=== PATIENT | female | born 1945 | race Caucasian/White ===

== ENCOUNTER → 2016-11-24 | Outpatient (CLI) | payer MEDICARE, BC ==
[~2016-11-24] MED LIST: HUMI20KI; MELO7.5T PO
[2016-11-24 16:22] LABS: AUTOMATED NEUTROPHIL # 2.8 TH/MM3 (1.8-7.7); BASOPHIL % 0.7 % (0.0-2.0); EOSINOPHIL # 0.2 TH/MM3 (0-0.4); EOSINOPHIL % 4.6 % (0.0-4.0); HEMATOCRIT 41.6 % (35.0-46.0); HEMO FLAGS DIFF FINAL; LYMPH % 31.2 % (9.0-44.0); LYMPHOCYTE # 1.6 TH/MM3 (1.0-4.8); MEAN CELL VOLUME 94.4 FL (80.0-100.0); MEAN CORPUSCULAR HGB CONC 33.9 % (32.0-36.0); MONO % 7.3 % (0.0-8.0); NEUT % 56.2 % (16.0-70.0); PLATELET COUNT 210 TH/MM3 (150-450); RED CELL DISTRIBUTION WIDTH 12.7 % (11.6-17.2)
[2016-11-24 16:47] LABS: ALT (GPT) 26 U/L (10-53); ANION GAP 6 MEQ/L (5-15); AST (GOT) 17 U/L (15-37); BICARBONATE 30.1 MEQ/L (21.0-32.0); BLOOD UREA NITROGEN 10 MG/DL (7-18); CHLORIDE 106 MEQ/L (98-107); GLOMERULAR FILTRATION RATE 72 ML/MIN (>89); POTASSIUM 4.2 MEQ/L (3.5-5.1); SODIUM (NA) 142 MEQ/L (136-145)
[2016-11-24 16:49] LABS: ALKALINE PHOSPHATASE 58 U/L (45-117); TOTAL BILIRUBIN ADULT 0.9 MG/DL (0.2-1.0)
[2016-11-26 17:30] LABS: MITOGEN MINUS NIL RESULT >10.00 IU/mL (()); NIL RESULT 0.03 IU/mL (()); QUANTIFERON TB GOLD RESULT Positive (Negative)
== END ==
LOC: PLAB 11:49
PROVIDERS: ATTEND Allergy & Immunology
DX: M05.79 Rheumatoid arthritis with rheumatoid factor of multiple sites without organ or systems involvement (principal); Z79.899 Other long term (current) drug therapy
CPT/HCPCS: 36415; 80053; 85025; 86480

== ENCOUNTER → 2017-04-26 | Outpatient (CLI) | payer MEDICARE, BC ==
[2017-04-26 13:00] LABS: AUTOMATED NEUTROPHIL # 2.5 TH/MM3 (1.8-7.7); BASOPHIL % 0.6 % (0.0-2.0); EOSINOPHIL # 0.5 TH/MM3 (0-0.4); EOSINOPHIL % 9.4 % (0.0-4.0); HEMATOCRIT 41.1 % (35.0-46.0); HEMO FLAGS DIFF FINAL; LYMPHOCYTE # 1.8 TH/MM3 (1.0-4.8); MEAN CELL VOLUME 95.3 FL (80.0-100.0); MEAN CORPUSCULAR HEMOGLOBIN 31.1 PG (27.0-34.0); MEAN CORPUSCULAR HGB CONC 32.7 % (32.0-36.0); PLATELET COUNT 177 TH/MM3 (150-450); RED BLOOD COUNT 4.31 MIL/MM3 (4.00-5.30); RED CELL DISTRIBUTION WIDTH 13.1 % (11.6-17.2); WHITE BLOOD COUNT 5.4 TH/MM3 (4.0-11.0)
[2017-04-26 13:30] LABS: ANION GAP 4 MEQ/L (5-15); AST (GOT) 16 U/L (15-37); BLOOD UREA NITROGEN 16 MG/DL (7-18); CHLORIDE 106 MEQ/L (98-107); GLOMERULAR FILTRATION RATE 71 ML/MIN (>89); POTASSIUM 4.2 MEQ/L (3.5-5.1); SODIUM (NA) 143 MEQ/L (136-145)
[2017-04-26 13:39] LABS: ALKALINE PHOSPHATASE 58 U/L (45-117); ALT (GPT) 22 U/L (10-53)
[2017-04-26 13:46] LABS: WESTERGREN SEDIMENTATION RATE 9 mm/hr (0-30)
== END ==
LOC: PLAB 10:57
PROVIDERS: ATTEND Allergy & Immunology
DX: M05.741 Rheumatoid arthritis with rheumatoid factor of right hand without organ or systems involvement (principal); E55.9 Vitamin D deficiency, unspecified; Z79.899 Other long term (current) drug therapy
CPT/HCPCS: 36415; 80053; 85025; 85652; 86140

== ENCOUNTER → 2017-06-03 | Outpatient (CLI) | payer MEDICARE, BC ==
[~2017-06-03] MED LIST changes: +CIMZ200K SQ; +TURM500C4 PO
[2017-06-03 09:33] LABS: AUTOMATED NEUTROPHIL # 2.4 TH/MM3 (1.8-7.7); BASOPHIL % 0.5 % (0.0-2.0); EOSINOPHIL # 0.6 TH/MM3 (0-0.4); EOSINOPHIL % 11.2 % (0.0-4.0); HEMATOCRIT 41.5 % (35.0-46.0); HEMO FLAGS DIFF FINAL; LYMPH % 33.7 % (9.0-44.0); LYMPHOCYTE # 1.8 TH/MM3 (1.0-4.8); MEAN CELL VOLUME 95.4 FL (80.0-100.0); MEAN CORPUSCULAR HEMOGLOBIN 31.7 PG (27.0-34.0); MEAN CORPUSCULAR HGB CONC 33.2 % (32.0-36.0); MONO % 9.1 % (0.0-8.0); NEUT % 45.5 % (16.0-70.0); PLATELET COUNT 190 TH/MM3 (150-450); RED BLOOD COUNT 4.35 MIL/MM3 (4.00-5.30); RED CELL DISTRIBUTION WIDTH 12.7 % (11.6-17.2); WHITE BLOOD COUNT 5.3 TH/MM3 (4.0-11.0)
[2017-06-03 09:41] LABS: INTERNATIONAL NORMALIZED RATIO 0.9 RATIO
[2017-06-03 09:53] LABS: BLOOD, URINE NEG (NEG); COMMENT (UR) CULT NOT INDICATED; CULTURE IF INDICATED CULT NOT INDICATED; GLUCOSE,URINE NEG (NEG); KETONE, URINE NEG (NEG); MUCUS URINE FEW /lpf (OCC); NITRITE,URINE NEG (NEG); SQUAMOUS EPITHELIAL CELL URINE <1 /hpf (0-5); URINE COLOR YELLOW (YELLW/STRAW)
== END ==
LOC: CPRE 08:14
PROVIDERS: ATTEND Orthopaedic Surgery
DX: Z01.812 Encounter for preprocedural laboratory examination (principal); M75.01 Adhesive capsulitis of right shoulder; M25.511 Pain in right shoulder
CPT/HCPCS: 36415; 81001; 85025; 85610

== ENCOUNTER → 2017-06-03 | Outpatient (CLI) | payer MEDICARE, BC ==
[2017-06-03 09:57] LABS: ALT (GPT) 25 U/L (10-53); ANION GAP 5 MEQ/L (5-15); AST (GOT) 18 U/L (15-37); BICARBONATE 30.2 MEQ/L (21.0-32.0); BLOOD UREA NITROGEN 17 MG/DL (7-18); CHLORIDE 106 MEQ/L (98-107); GLOMERULAR FILTRATION RATE 73 ML/MIN (>89); GLUCOSE,FASTING 92 MG/DL (74-99); POTASSIUM 4.2 MEQ/L (3.5-5.1); SODIUM (NA) 141 MEQ/L (136-145)
[2017-06-03 10:02] LABS: ALKALINE PHOSPHATASE 58 U/L (45-117); TOTAL BILIRUBIN ADULT 0.7 MG/DL (0.2-1.0)
== END ==
LOC: CLAB 08:24
PROVIDERS: ATTEND Allergy & Immunology
DX: M05.741 Rheumatoid arthritis with rheumatoid factor of right hand without organ or systems involvement (principal); E55.9 Vitamin D deficiency, unspecified; Z79.899 Other long term (current) drug therapy
CPT/HCPCS: 36415; 80053; 81001; 85025; 85610; 85652; 86140

== ENCOUNTER → 2017-07-22 | Outpatient (CLI) | payer MEDICARE, BC ==
[~2017-07-22] MED LIST changes: -HUMI20KI; -MELO7.5T PO
[2017-07-22 11:36] LABS: AUTOMATED NEUTROPHIL # 2.2 TH/MM3 (1.8-7.7); BASOPHIL % 0.7 % (0.0-2.0); EOSINOPHIL # 0.3 TH/MM3 (0-0.4); HEMATOCRIT 41.7 % (35.0-46.0); HEMO FLAGS DIFF FINAL; LYMPH % 37.7 % (9.0-44.0); LYMPHOCYTE # 1.8 TH/MM3 (1.0-4.8); MEAN CELL VOLUME 95.1 FL (80.0-100.0); MEAN CORPUSCULAR HEMOGLOBIN 31.7 PG (27.0-34.0); MEAN CORPUSCULAR HGB CONC 33.3 % (32.0-36.0); MONO % 9.4 % (0.0-8.0); NEUT % 46.2 % (16.0-70.0); PLATELET COUNT 216 TH/MM3 (150-450); RED BLOOD COUNT 4.38 MIL/MM3 (4.00-5.30); RED CELL DISTRIBUTION WIDTH 12.1 % (11.6-17.2); WHITE BLOOD COUNT 4.8 TH/MM3 (4.0-11.0)
[2017-07-22 11:45] LABS: INTERNATIONAL NORMALIZED RATIO 0.9 RATIO; PROTHROMBIN TIME - PATIENT 10.2 SEC (9.8-11.6)
[2017-07-22 11:48] LABS: BLOOD, URINE NEG (NEG); COMMENT (UR) CULT NOT INDICATED; CULTURE IF INDICATED CULT NOT INDICATED; GLUCOSE,URINE NEG (NEG); KETONE, URINE NEG (NEG); MUCUS URINE FEW /lpf (OCC); NITRITE,URINE NEG (NEG); SQUAMOUS EPITHELIAL CELL URINE <1 /hpf (0-5); URINE COLOR YELLOW (YELLW/STRAW)
[2017-07-22 12:05] LABS: BICARBONATE 30.8 MEQ/L (21.0-32.0)
== END ==
LOC: CPRE 10:58
PROVIDERS: ATTEND Orthopaedic Surgery
DX: Z01.812 Encounter for preprocedural laboratory examination (principal); M75.01 Adhesive capsulitis of right shoulder; M25.511 Pain in right shoulder
CPT/HCPCS: 36415; 80048; 81001; 85025; 85610

== ENCOUNTER → 2017-07-28 | Day surgery (SDC) | payer MEDICARE, BC ==
--- NOTE | 2017-06-11 09:25 | MH ---
cc: MEME PATEL M.D. DATE OF ADMISSION: 07/02/2017 ADMISSION DIAGNOSIS Adhesive capsulitis right shoulder and pain of the right shoulder. HISTORY OF THE PRESENT ILLNESS The patient is a 71-year-old white female who has experienced pain of her right shoulder of almost 8 months duration. She had noted the onset of her symptoms that she related to participation in tennis activity which she was accustomed to playing at least three to four times per week and had conformed to this routine for almost 50 years. She did not recall any specific event during this activity that she might associate with the onset of her symptoms. She initially conformed to conservative management which included taking ibuprofen with limited benefit being noted. Her symptoms persisted. She later underwent medical evaluation with her primary care physician Dr. Quesada. An MRI scan of her right shoulder was completed the results of which identified findings consistent with adhesive capsulitis. There was tendinopathy of the distal fibers of the supraspinatus and infraspinatus tendons with a questionable rim tear of the anterior supraspinatus insertion as well as a questionable posterior labral tear. The patient was prescribed anti-inflammatory medication that she discontinued indicating that her pain was primarily associated with her continued tennis activities. She presented to the undersigned physician in February of this year and at that time reported ongoing pain about her right shoulder area. She did note a positive history for rheumatoid arthritis. Her overall findings were felt to be consistent with adhesive capsulitis for which she was initiated into a course of physical therapy and followed on outpatient basis thereafter. Unfortunately she was unable to appreciate any significant improvement of her symptoms and remained symptomatic with pain about the shoulder area that was influencing all activities of daily living. These findings were reviewed with the patient. The pros and cons of continuing with additional physical therapy versus a manipulation under anesthesia were reviewed. The potential risks and complications associated were emphasized. The patient considered her options in this regard and given the progressive nature of her symptoms and her associated limitations she expressed her desire to proceed accordingly and in compliance with her wishes she is currently being admitted in order that manipulation under anesthesia be accomplished. She is right-hand dominant. PAST MEDICAL HISTORY Her past medical history, hospitalizations and surgeries note: 1. Previous right total knee arthroplasty. 2. Arthroscopic surgery of both knees. 3. Colonoscopy. 4. Bilateral augmentation mammoplasty. 5. Abdominoplasty. 6. Of clinical significance is the fact that the patient had also previously experienced a left frozen shoulder syndrome which did respond to therapy intervention. Her medical illnesses include: Rheumatoid arthritis for which she takes Cimzia a 400 milligrams monthly injection. ALLERGIES THE PATIENT DENIES ANY KNOWN DRUG ALLERGIES. REVIEW OF SYSTEMS She wears contact lenses. She has a history of migraine headaches. No seizure or syncope. No sinus congestion or epistaxis. Auditory acuity intact. No tinnitus. No bleeding gums or dysphagia. Denies cough, shortness of breath, upper respiratory infection. There is a positive history of pneumonia as well as having tested positively with skin testing for tuberculosis. No angina or heart disease. Her appetite is good. Bowel movements are regular. No hepatitis, gallbladder disease or ulcers. There is a positive history of hemorrhoids. No urinary tract infection. No kidney stones. Previous history of a fracture of the left wrist treated by cast immobilization. No psychiatric illness. Her remaining review of systems is unremarkable and noncontributory. FAMILY HISTORY The patient has been for over 8 years. 84 years of age and described as being in good health. Three sons and one daughter all indicated to be in good health. Family history is positive for hypertension, diabetes and congestive heart failure. SOCIAL HISTORY The patient completed a [email or web address] college degree and subsequently attended [employer] training but has been retired for over 15 years. She denies active use of tobacco. Ethanol consumption on a rare occasion. PHYSICAL EXAMINATION GENERAL: Height 5 feet 7 inches, weight 170 pounds. An alert, oriented and responsive 71-year-old white female who sits quietly upon examination table. No obvious distress. HEENT: Eyes, nose and throat, pupils are equally round and reactive to light. Extraocular movements full. Sclerae clear. External nares clear. External auditory canals clear. Dental intact. Mucous membranes pink and moist. Pharynx clear. NECK: Supple. Active range of motion. No significant pain. Carotid pulse palpable bilaterally. Trachea midline. Thyroid without enlargement. LUNGS: Clear to auscultation and percussion. No CVA tenderness. No discomfort throughout the dorsal lumbar spine. HEART: Regular rhythm. No murmur or gallop. ABDOMEN: Soft, nontender. Bowel sounds present. PELVIC: Per primary care physician. EXTREMITIES: Right shoulder there is no localizing tenderness to palpation. There is obvious effort and discomfort with the patient actively attempting to elevate her right hand above her head level. Pain and limitations most pronounced in the 30 degree range of abduction maneuvering at which point there is an abrupt endpoint to the glenohumeral mobility and scapulothoracic motion tends to take over. No obvious crepitation or instability about the glenohumeral joint. Drop arm test is negative. Hendricks sign positive. No appreciable weakness of internal or external rotation. Nuclear Equipment Design Engineer strength intact. Sensory intact. NEUROLOGIC: Cranial nerves II-XII grossly intact. IMPRESSION Adhesive capsulitis of the right shoulder, pain right shoulder. PLAN Manipulation under anesthesia right shoulder. The nature of the planned surgical procedure, the potential complications and risks associated, the expectations of surgery and the consent form were thoroughly reviewed with the patient prior to admission to the hospital. María has indicated her full understanding regarding all of the above and given consent to proceed with treatment as outlined. Medical evaluation and clearance for surgery completed by her primary care physician Dr. Lalo Quesada. MD JIMMY Malloy/KK /3:50 PM /9:17 AM
--- NOTE | 2017-07-20 13:52 | MH ---
cc: MEME CHOPRA DATE OF ADMISSION: 07/28/2017 ADMITTING DIAGNOSIS 1. Adhesive capsulitis, right shoulder. 2. Pain, right shoulder. HISTORY OF PRESENT ILLNESS The patient is a 72-year-old white female who has experienced pain in her right shoulder of at least eight months duration. She had noted the onset of her symptoms related to participation in tennis activity which she had been accustomed to playing at least 3-4 times per week, while conforming to this routine for at least 50 years. She did not recall any specific event during this activity that she might associate with the onset of her symptoms. She initially conformed to conservative management which included taking ibuprofen with limited benefit described. Her symptoms persisted and she later underwent medical evaluation with her primary care physician, Dr. Quesada. An MRI scan of her right shoulder was completed, the results of which identified findings consistent with adhesive capsulitis, tendinopathy of the distal fibers of the supraspinatus and infraspinatus tendons with a questionable rim tear of the anterior supraspinatus insertion as well as a questionable posterior labral tear. The patient was prescribed anti-inflammatory medication that she discontinued indicating her pain was primarily associated with her continued tennis routine. She was seen by the undersigned physician in February of this year and at that time reported ongoing pain about her right shoulder. She reported a positive history of rheumatoid arthritis. Her overall clinical picture at that time was felt to be consistent with adhesive capsulitis of her right shoulder for which she was initiated into a course of physical therapy and followed on an outpatient basis thereafter. Unfortunately, she was unable to appreciate any significant improvement of her symptoms while noting continued pain about the shoulder area with restricted mobility that was influencing all activities of daily living. Findings were reviewed with the patient. The pros and cons of continuing with additional physical therapy versus undergoing a manipulation under anesthesia were reviewed. The potential risks and complications associated with the procedure were emphasized. The patient did consider options in this regard and given the progressive nature of her symptoms and associated limitations she expressed her desire to proceed with treatment as discussed. In compliance with her wishes she is currently being admitted in order that the manipulation be accomplished. She is right-hand dominant. PAST MEDICAL HISTORY Her past medical history, hospitalizations and surgeries: 1. Right total knee arthroplasty. 2. Arthroscopic surgery of both knees. 3. Colonoscopy. 4. Bilateral augmentation mammoplasty. 5. Abdominoplasty. 6. History of a left frozen shoulder syndrome which did respond to therapy intervention. PAST MEDICAL HISTORY Her medical illnesses include rheumatoid arthritis for which she is treated with Cimzia 400 mg monthly injection. ALLERGIES The patient denies any known drug allergies. REVIEW OF SYSTEMS She wears contact lenses. There is a history of migraine headaches. No seizure or syncope. No sinus congestion or epistaxis. Auditory acuity intact. No tinnitus. No bleeding gums or dysphagia. No cough, shortness of breath, upper respiratory infection. There is a positive history of pneumonia as well as having tested positively by skin testing for tuberculosis. No angina or heart disease. Appetite good. Bowel movements regular. No hepatitis, gallbladder disease or ulcers. There is a history of hemorrhoids. No urinary tract infection. No kidney stones. Positive history for fracture of the left wrist treated by cast immobilization. No psychiatric illness. The remaining review of systems is unremarkable and noncontributory. FAMILY HISTORY The patient has been for over eight years. Her is 84 years of age and indicated to be in good health. Three sons and one daughter all described as being in good health. Family history is positive for hypertension, diabetes and congestive heart failure. SOCIAL HISTORY The patient completed a [employer] college degree and attended [employer] training and has been retired for more than 15 years. She denies active use of tobacco. Ethanol consumption on a rare basis. PHYSICAL EXAMINATION Height 5 feet 7 inches, weight 170 pounds. GENERAL: An alert, oriented and responsive 71-year-old white female who sits quietly upon the examination table with no apparent distress. HEAD, EYES, EARS, NOSE, AND THROAT: Pupils equally round and reactive to light. Extraocular movements full. Sclera clear. External nares clear. External auditory canals clear. Dental intact. Mucous membranes pink and moist. Pharynx clear. NECK: Supple. Active range of motion. No significant pain. Carotid pulse palpable bilaterally. Trachea midline. Thyroid without enlargement. LUNGS: Clear to auscultation and percussion. BACK: No CVA tenderness. No discomfort involving the dorsolumbar spine. HEART: Regular rhythm. No murmur or gallop. ABDOMEN: Soft, nontender. Bowel sounds present. PELVIC: Per primary care physician. EXTREMITIES: Right Shoulder: No localizing tenderness to palpation. There is restricted mobility of the shoulder joint with obvious effort demonstrated by the patient as she attempts to elevate her right hand above her head level. Pain and limitation is most pronounced in the 30 degree range of abduction maneuvering where there is an abrupt endpoint to glenohumeral mobility and scapulothoracic motion takes over. No obvious crepitation or instability about the glenohumeral joint. Drop arm test is negative. Hendricks sign positive. No appreciable weakness of internal or external rotation. Creasing Machine Operator strength intact. Sensory intact. NEUROLOGIC: Cranial nerves II through XII grossly intact. IMPRESSION 1. Adhesive capsulitis, right shoulder. 2. Pain, right shoulder. PLAN Manipulation under anesthesia, right shoulder. The nature of the planned surgical procedure, the potential complications and risks associated, the expectations of surgery and the consent form have been thoroughly reviewed with the patient prior to her admission to the hospital. María has indicated her full understanding regarding all of the above and given consent to proceed with treatment as outlined. Medical evaluation and clearance for surgery will be completed by her primary care physician, Dr. Thai Quesada. Meme Chopra MD NBS/BT /1:23 PM /1:34 PM
[~2017-07-28] VITALS: Ht 170.2 cm; Wt 78.3 kg
[~2017-07-28] MED LIST changes: +ACETAMINOPHEN/HYDROcodone 325 MG/5 MG TAB ONE; +ACETAMINOPHEN/HYDROcodone 325 MG/5 MG TAB PO PRN; +CHLORHEXIDINE GLUCONATE 2 % 1 PACK (2 CLOTHS) TOPICAL PRN; +DO NOT ADM ANY ANTICOAGULANT DRUGS PRN; +INSULIN HUMAN REGULAR 1,000 UNITS/10 ML VIAL SQ PRN; +LACTATED RINGER'S 1000 ML IV PRN; +METOPROLOL TARTRATE 25 MG TAB PO PRN; +MORPHINE SULFATE 4 MG/ML INJ IM PRN; +POVIDONE IODINE 5% (ANTISEPSIS KIT) 4 APPLICATIONS EACH NARE PRN; +PROMETHAZINE INJ 25 MG/ML VIAL IM PRN; +PROPOFOL 200 MG/20 ML AMP IV ONE; +SODIUM CHLORID 0.9% 500 ML IV PRN
--- NOTE | 2017-07-28 07:44 | MP ---
cc: MEME PATEL DATE OF SURGERY July 28, 2017. PREOPERATIVE DIAGNOSIS Adhesive capsulitis of the right shoulder. POSTOPERATIVE DIAGNOSIS Adhesive capsulitis of the right shoulder. PROCEDURE Manipulation under anesthesia right shoulder. SURGEON MD Nav ANESTHESIA IV sedation. FORMAT Following the induction of satisfactory IV sedation as completed per the Department of Anesthesia, the standard time-out protocol was completed with all parameters being appropriately addressed and confirmed by operating room personnel. Pre-manipulation assessment of the right shoulder regarding mobility demonstrated no more than approximately 45 degrees of glenohumeral abduction mobility where after the remaining range of motion was primarily scapulothoracic in origin. A manual manipulation of the shoulder was thereafter accomplished and, as the shoulder was brought into a full overhead orientation, an obvious audible and palpable release of adhesions of the glenohumeral joint was appreciated. Thereafter the extremity could be fully postured in overhead orientation with greater than 90 degrees of glenohumeral abduction being noted and no sensation of instability of the glenohumeral joint. Anesthesia was thereafter discontinued and the patient thus transferred by a stretcher to the recovery room in satisfactory condition having tolerated her operative procedure well. MD JIMMY Malloy/BERYL /7:22 AM /7:32 AM
[2017-07-28 08:49] VITALS: BP 136/74; PULSE 64; RESP 17; TEMP 97.8; O2SAT 100
== END | disposition home or self-care (01) ==
LOC: HSDC 05:32
PROVIDERS: ATTEND Orthopaedic Surgery
DX: M75.01 Adhesive capsulitis of right shoulder (principal)
CPT/HCPCS: 01620; 23700; J7120; J3010

== ENCOUNTER → 2017-10-04 | Outpatient (CLI) | payer MEDICARE, BC ==
[~2017-10-04] MED LIST changes: -ACETAMINOPHEN/HYDROcodone 325 MG/5 MG TAB ONE; -ACETAMINOPHEN/HYDROcodone 325 MG/5 MG TAB PO PRN; -CHLORHEXIDINE GLUCONATE 2 % 1 PACK (2 CLOTHS) TOPICAL PRN; -DO NOT ADM ANY ANTICOAGULANT DRUGS PRN; -INSULIN HUMAN REGULAR 1,000 UNITS/10 ML VIAL SQ PRN; -LACTATED RINGER'S 1000 ML IV PRN; -METOPROLOL TARTRATE 25 MG TAB PO PRN; -MORPHINE SULFATE 4 MG/ML INJ IM PRN; -POVIDONE IODINE 5% (ANTISEPSIS KIT) 4 APPLICATIONS EACH NARE PRN; -PROMETHAZINE INJ 25 MG/ML VIAL IM PRN; -PROPOFOL 200 MG/20 ML AMP IV ONE; -SODIUM CHLORID 0.9% 500 ML IV PRN; -TURM500C4 PO; +TURM500C7 PO
[2017-10-04 13:15] LABS: AUTOMATED NEUTROPHIL # 2.7 TH/MM3 (1.8-7.7); BASOPHIL % 0.6 % (0.0-2.0); EOSINOPHIL # 0.3 TH/MM3 (0-0.4); EOSINOPHIL % 5.3 % (0.0-4.0); HEMATOCRIT 40.1 % (35.0-46.0); HEMO FLAGS DIFF FINAL; LYMPH % 33.6 % (9.0-44.0); LYMPHOCYTE # 1.7 TH/MM3 (1.0-4.8); MEAN CELL VOLUME 95.3 FL (80.0-100.0); MEAN CORPUSCULAR HEMOGLOBIN 32.7 PG (27.0-34.0); MEAN CORPUSCULAR HGB CONC 34.3 % (32.0-36.0); MONO % 7.8 % (0.0-8.0); NEUT % 52.7 % (16.0-70.0); PLATELET COUNT 189 TH/MM3 (150-450); RED BLOOD COUNT 4.21 MIL/MM3 (4.00-5.30); RED CELL DISTRIBUTION WIDTH 12.9 % (11.6-17.2); WHITE BLOOD COUNT 5.2 TH/MM3 (4.0-11.0)
[2017-10-04 13:37] LABS: WESTERGREN SEDIMENTATION RATE 12 mm/hr (0-30)
[2017-10-04 13:39] LABS: ANION GAP 5 MEQ/L (5-15); AST (GOT) 22 U/L (15-37); BICARBONATE 29.8 MEQ/L (21.0-32.0); BLOOD UREA NITROGEN 15 MG/DL (7-18); CHLORIDE 106 MEQ/L (98-107); GLOMERULAR FILTRATION RATE 65 ML/MIN (>89); SODIUM (NA) 141 MEQ/L (136-145)
[2017-10-04 13:45] LABS: ALKALINE PHOSPHATASE 71 U/L (45-117); ALT (GPT) 31 U/L (10-53); TOTAL BILIRUBIN ADULT 0.7 MG/DL (0.2-1.0)
== END ==
LOC: PLAB 10:18
PROVIDERS: ATTEND Allergy & Immunology
DX: M05.741 Rheumatoid arthritis with rheumatoid factor of right hand without organ or systems involvement (principal); M05.742 Rheumatoid arthritis with rheumatoid factor of left hand without organ or systems involvement
CPT/HCPCS: 36415; 80053; 85025; 85652; 86038; 86140; 86200; 86430

== ENCOUNTER → 2018-01-05 | Outpatient (CLI) | payer MEDICARE, BC ==
[2018-01-05 11:01] LABS: ALBUMIN 3.6 GM/DL (3.4-5.0); AST (GOT) 27 U/L (15-37); BICARBONATE 30.5 MEQ/L (21.0-32.0); BLOOD UREA NITROGEN 22 MG/DL (7-18); CALCIUM 8.7 MG/DL (8.5-10.1); CHLORIDE 106 MEQ/L (98-107); CHOLESTEROL 217 MG/DL (120-200); CREATININE 0.88 MG/DL (0.50-1.00); GLOMERULAR FILTRATION RATE 64 ML/MIN (>89); GLUCOSE,FASTING 93 MG/DL (74-99); SODIUM (NA) 142 MEQ/L (136-145); TRIGLYCERIDES 45 MG/DL (42-150)
[2018-01-05 11:03] LABS: ALKALINE PHOSPHATASE 66 U/L (45-117); ALT (GPT) 35 U/L (10-53); CHOLESTEROL/ HDL RATIO 2.84 RATIO; HDL CHOLESTEROL 76.3 MG/DL (40.0-60.0); LDL CHOLESTEROL 132 MG/DL (0-99); TOTAL BILIRUBIN ADULT 1.1 MG/DL (0.2-1.0); TOTAL PROTEIN 7.1 GM/DL (6.4-8.2)
[2018-01-05 11:05] LABS: AUTOMATED NEUTROPHIL # 2.4 TH/MM3 (1.8-7.7); BASOPHIL % 0.5 % (0.0-2.0); EOSINOPHIL # 0.2 TH/MM3 (0-0.4); EOSINOPHIL % 4.9 % (0.0-4.0); HEMATOCRIT 39.8 % (35.0-46.0); HEMOGLOBIN 13.5 GM/DL (11.6-15.3); LYMPH % 35.2 % (9.0-44.0); LYMPHOCYTE # 1.7 TH/MM3 (1.0-4.8); MEAN CORPUSCULAR HEMOGLOBIN 32.3 PG (27.0-34.0); MEAN PLATELET VOLUME 9.4 FL (7.0-11.0); MONO % 10.5 % (0.0-8.0); MONOCYTE # 0.5 TH/MM3 (0-0.9); NEUT % 48.9 % (16.0-70.0); PLATELET COUNT 198 TH/MM3 (150-450); RED BLOOD COUNT 4.18 MIL/MM3 (4.00-5.30); RED CELL DISTRIBUTION WIDTH 12.9 % (11.6-17.2); WHITE BLOOD COUNT 4.9 TH/MM3 (4.0-11.0)
== END ==
LOC: PLAB 08:24
PROVIDERS: ATTEND Internal Medicine
DX: Z13.220 Encounter for screening for lipoid disorders (principal)
CPT/HCPCS: 36415; 80053; 80061; 85025